=== PATIENT | female | born 1990 | race Hispanic/Latino ===

== ENCOUNTER 2020-02-26 14:41 | Emergency (ER) | payer OTHER, SELFPAY ==
[2020-02-26 15:20] VITALS: BP 136/87; PULSE 106; RESP 18; TEMP 37.6; O2SAT 97
--- NOTE | 2020-02-26 15:31 | ED.WOUNDLAC ---
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 She reports she is not up-to-date on her tetanus Related Data Home Medications Medication Instructions Recorded Confirmed meloxicam 15 mg tablet 15 mg PO DAILY 10/03/19 montelukast 10 mg tablet 10 mg PO DAILY 10/03/19 Allergies Allergy/AdvReac Type Severity Reaction Status Date / Time No Known Allergies Allergy Verified 10/10/19 15:05 Review of Systems Review of Systems: Narrative: CONSTITUTIONAL: Denies malaise, chills, sweats, or fever. CARDIOVASCULAR: Denies chest pain, palpitations RESPIRATORY: Denies dyspnea. SKIN: Reports laceration to the dorsal aspect of second digit of the left hand near the PA IP joint MUSCULOSKELETAL: Denies decreased range of motion, decrease sensitivity NEUROLOGIC: Denies numbness, weakness All systems reviewed & are unremarkable except as noted in HPI and below PMFSH Past Medical History Medical History (Updated 02/26/20 @ 15:56 by Anna Gaming NP) ADD (attention deficit disorder) Anxiety Asthma Kidney stones Social History Social History Smoking status: Never smoker Second hand tobacco smoke exposure: No Alcohol intake: current Comments At time of signature, agree with nursing past medical, surgical, social and family history. There is no relevant family history pertinent to the presenting complaint Exam Narrative: Exam Narrative: GENERAL: Well-appearing, well-nourished, and in no acute distress. HEAD: Normocephalic, atraumatic. EYES: PERRLA, conjunctivae clear NECK: Supple. CHEST: Speaks in full sentences. No respiratory distress. HEART: Regular rate and rhythm. Normal and equal peripheral pulses. EXTREMITIES: Left hand and digits of hand have normal strength and sensation. 5/5 strength with digit flexion, extension. Range of motion normal. No clubbing, cyanosis, or edema noted. No tenderness. Normal digital cascade with flexion of fingers, median, ulnar and radial nerve intact. Normal sensation of each side of finger. Can perform 'okay' sign, 'cross over finger test of index and middle fingers' and 'thumbs up' sign. No scissoring. Normal thumb opposition. Good capillary refill and radial pulse. Distal capillary refill ?3 seconds. SKIN: Warm, dry, no rash. 0.5 cm superficial laceration located next to the PIP joint on the dorsal aspect of the left hand. Well approximated, no surrounding erythema, edema, induration. NEURO: Alert and oriented x3. PSYCH: Normal mood and affect Course Course Emergency Course: Patient is aware of diagnosis, understands and agrees to treatment plan. Anticipatory guidance given. Patient agrees to follow-up as directed and is aware of reasons to seek care at the emergency department. Portions of this record may have been created with voice recognition software Vital Signs Vital signs: Vital Signs Temperature 99.7 F H 02/26/20 15:20 Pulse Rate 106 H 02/26/20 15:20 Respiratory Rate 18 02/26/20 15:20 Blood Pressure 136/87 02/26/20 15:20 Pulse Oximetry 97 02/26/20 15:20 Temperature 99.7 F H 02/26/20 15:20 Pulse Rate 106 H 02/26/20 15:20 Respiratory Rate 18 02/26/20 15:20 Blood Pressure 136/87 02/26/20 15:20 Pulse Oximetry 97 02/26/20 15:20 Reviewed. MDM - Wound/Laceration MDM Narrative Medical decision making narrative: Wound explored for foreign body and copious irrigation provided with no evidence of FB. Discussed the potential of retained foreign body with the patient and signs/symptoms that should prompt the patient to immediately go to
[2020-02-26] MEDS: TETANUS,DIPHTHERIA,AC PERTUSSIS ADULT 0.5 ML (ADACEL) IM (15:58)
== END 2020-02-26 16:18 | disposition home or self-care (01) ==
PROVIDERS: Emergency Provider Nurse Practitioner
DX: S61.211A Laceration without foreign body of left index finger without damage to nail, initial encounter (principal); F98.8 Other specified behavioral and emotional disorders with onset usually occurring in childhood and adolescence; F41.9 Anxiety disorder, unspecified; J45.909 Unspecified asthma, uncomplicated; Z87.442 Personal history of urinary calculi; Z23 Encounter for immunization; W27.0XXA Contact with workbench tool, initial encounter
CPT/HCPCS: 12001; 90471; 90715; 99212; G0463

== ENCOUNTER 2020-05-13 11:51 | Outpatient (CLI) | payer OTHER, SELFPAY ==
--- NOTE | ~2020-05-13 | CT_ITS ---
EXAMINATION: CT abdomen pelvis wo con DATE: 05/13/2020 12:20 INDICATION: Hematuria TECHNIQUE: Computed tomography (CT) of the abdomen and pelvis was performed without intravenous contr ast. Automated exposure control and iterative reconstruction technique were employed. Exam dose: 175 .20 mGy-cm total exam DLP. COMPARISON: None. FINDINGS: There is an approximately 6 mm distal right ureteral calculus with proximal mild to moderat e right hydroureteronephrosis. No hepatic, splenic, pancreatic, adrenal or renal space occupying mass lesion is evident on this limi uri noncontrast examination. No bile duct or pancreatic duct dilatation. The gallbladder is present. Normal caliber of the abdominal aorta. No intraperitoneal or retroperitoneal or pelvic mass lesion o r lymphadenopathy. No ascites. The uterus and adnexal areas and urinary bladder are unremarkable. Normal appendix. Mild colonic diverticulosis; no evidence of diverticulitis. No bowel obstruction o r free air. Included skeletal structures are unremarkable. IMPRESSION: 6 mm distal right ureteral calculus with proximal mild to moderate right hydroureteronep hrosis Reviewed, dictated and finalized at [facility]. Reviewed, dictated and finalized at location B. IMPRESSION: 6 mm distal right ureteral calculus with proximal mild to moderate right hydroureteronephrosis
--- NOTE | ~2020-05-13 | XR_ITS ---
XR abdomen/kub 1V DATE: 05/13/2020 12:11 INDICATION: Hematuria TECHNIQUE: AP projection, 2 views COMPARISON: 08/20/2019 KUB FINDINGS: There is an approximately 4 mm distal right ureteral calcified calculus. No evidence of bowel obstruction. The psoas shadows are intact. No visceromegaly. Included skeletal structures are unremarkable. IMPRESSION: 4 mm distal right ureteral calcified calculus Reviewed, dictated and finalized at [facility]. Reviewed, dictated and finalized at location B.
== END 2020-05-13 11:52 | disposition home or self-care (01) ==
PROVIDERS: PCP Family Medicine; Visit Provider Family Medicine
DX: R31.9 Hematuria, unspecified (principal); N20.0 Calculus of kidney; N13.30 Unspecified hydronephrosis; N20.1 Calculus of ureter
CPT/HCPCS: 74018; 74176

== ENCOUNTER 2020-05-28 07:30 | Outpatient (CLI) | payer OTHER, SELFPAY ==
--- NOTE | ~2020-05-28 | XR_ITS ---
XR abdomen/kub 1V DATE: 05/28/2020 07:51 INDICATION: Right ureteral stone TECHNIQUE: AP projection COMPARISON: 05/13/[address] abdomen pelvis 05/13/2020 KUB FINDINGS: The 4 mm calcified calculus of the distal right ureter is unchanged in position compared to 05/13/2020. There is no evidence of bowel obstruction. The psoas shadows are intact. No visceromegaly is evident. IMPRESSION: Unchanged position of 4 mm calcified distal right ureteral calculus since 05/13/2020 Reviewed, dictated and finalized at [facility]. Reviewed, dictated and finalized at location A.
== END 2020-05-28 07:31 ==
PROVIDERS: Visit Provider Urology
DX: N20.1 Calculus of ureter (principal)
CPT/HCPCS: 74018

== ENCOUNTER 2020-06-15 19:17 | Observation (INO) | payer OTHER, SELFPAY ==
--- NOTE | ~2020-06-15 | CT_ITS ---
EXAMINATION: CT abdomen pelvis wo con DATE: 06/15/2020 21:07 INDICATION: Right flank pain. History of stones. TECHNIQUE: Computed tomography (CT) of the abdomen and pelvis was performed without intravenous contr ast. The dose-length product was 365.96 mGy-cm. Automated exposure control and iterative reconstructi on technique were employed. COMPARISON: CT dated 05/13/2020 FINDINGS: There is a 6 mm right UVJ stone with moderate right hydroureteronephrosis. There is periure teral and perinephric edema, consistent with obstruction. Lung bases unremarkable. Heart size normal. No pleural or pericardial effusion. Liver, spleen, pancreas, adrenal glands and left kidney are unremarkable. Nonobstructive bowel gas pa ttern. The Rankin catheter appears to be in the vagina, although the bladder is not well-distended. Co rrelate for urine return. IMPRESSION: 1. 6 mm right UVJ stone with moderate right hydronephrosis. There is associated periureteral and tera nephric edema. 2: Rankin catheter may be present in the vagina rather than the bladder. Correlate clinically for urin e return. Reviewed, dictated and finalized at location A. IMPRESSION: 1. 6 mm right UVJ stone with moderate right hydronephrosis. There is associated periureteral and perinephric edema. 2: Rankin catheter may be present in the vagina rather than the bladder. Correla te clinically for urine return.
--- NOTE | ~2020-06-15 | XR_ITS ---
EXAMINATION: XR retrograde pyelo w/stent RT DATE: 06/16/2020 14:01 INDICATION: Right ureteral stone. TECHNIQUE: 6 intraoperative fluoroscopic views of the abdomen and pelvis were obtained. I was not pre sent. Fluoroscopy exposure time was 23 seconds. COMPARISON: CT abdomen and pelvis 06/15/2020 FINDINGS: The international tax manager images demonstrate a 6 mm stone at the right ureterovesicular junction. The right -sided retrograde pyelogram is unremarkable. The final images demonstrate a right internal ureteral s tent in expected position. IMPRESSION: 1. 6 mm stone at the right ureterovesicular junction. 2. Right internal ureteral stent in expected position. Reviewed, dictated and finalized at location B.
[2020-06-15 19:19] VITALS: BP 145/99; PULSE 145; RESP 18; TEMP 36.6; O2SAT 100
[2020-06-15 19:29] VITALS: BP 140/100; PULSE 119; RESP 22; TEMP 36.9; O2SAT 99
[2020-06-15 19:39] LABS: Basophils Absolute Auto 0.1 K/mm3 (0.0-0.1); Basophils Percent Auto 0.7 % (0.2-1.2); Eosinophils Absolute Auto 0.1 K/mm3 (0-0.3); Eosinophils Percent Auto 0.7 % (0-4.4); Hematocrit 39.8 % (37.0-47.0); Hemoglobin 13.6 g/dL (12.0-15.0); Immature Granulocyte Absolute 0.06 K/mm3 (0.00-0.031); Immature Granulocyte Percent A 0.4 % (0-0.5); Lymphocytes Absolute Auto 4.66 K/mm3 (0.9-3.2); Lymphocytes Percent Auto 28.4 % (18.3-44.2); Mean Corpuscular HGB Conc 34.2 g/dl (32-36); Mean Corpuscular Hemoglobin 31.3 pg (26-34); Mean Corpuscular Volume 91.5 fl (80-100); Monocytes Absolute Auto 1.3 K/mm3 (0.1-0.6); Monocytes Percent Auto 7.8 % (2.6-8.5); Neutrophils Absolute Auto 10.2 K/mm3 (1.3-6.7); Platelet Count Result 401 k/mm3 (150-375); Red Blood Count 4.35 M/mm3 (4.2-5.4); Red Cell Distribution Width 12.7 % (11.5-14.5); White Blood Count 16.4 K/mm3 (4.5-10.0)
[2020-06-15 19:49] LABS: Anion Gap 9 mmol/L (8-16); Blood Urea Nitrogen 17 mg/dL (7-17); Calcium 9.2 mg/dL (8.4-10.2); Carbon Dioxide 27 mmol/L (22-30); Chloride 103 mmol/L (98-107); Estimated CRCL calculation 73 ml/min; Estimated Glomerular Filt Rate > 60; Glucose 107 mg/dL (65-105); Potassium 3.3 mmol/L (3.4-5.0); Sodium 139 mmol/L (137-145)
--- NOTE | 2020-06-15 19:52 | PC.NURSE ---
Astorga Catheter placed by equip tech, there is no urine output noted in the astorga at this time. Will re-scan bladder.
--- NOTE | 2020-06-15 20:12 | PC.NURSE ---
Lab aware of add on for Beta HCG
[2020-06-15 20:40] LABS: Beta HCG Quantitative < 2.39 mIU/ML
--- NOTE | 2020-06-15 20:44 | ED.FEMALEGU ---
HPI - Female Genitourinary General Chief complaint: Urogenital-Female <Paulina Velazco PA-C - Last Filed: 06/15/20 22:37> Stated complaint: kidney stone, not urinated in 12 hours <Paulina Velazco PA-C - Last Filed: 06/15/20 22:37> Time Seen by Provider: 06/15/20 19:34 <LAZ Arroyo Last Filed: 06/15/20 22:37> Source: patient and family <LAZ Arroyo Last Filed: 06/15/20 22:37> Mode of arrival: ambulatory <LAZ Arroyo Last Filed: 06/15/20 22:37> Limitations: no limitations <Paulina Velazco PA-C - Last Filed: 06/15/20 22:37> History of Present Illness HPI Narrative: Patient presents with chief complaint of right groin pain and leg times been heard to urinate with only trickles. Patient states that she was told that she had a 6 mm stone in her UVJ and she saw her urologist Dr. Berman and they schedule a lithotripsy on 06-23-20 in an attempt to allow the patient to pass a stone on her own. Patient states today she began having pain in the area and the persistent urge to urinate but when she goes to the bathroom she only has small trickles. Patient denies tenderness and and fullness over her bladder. Patient reports nausea but denies vomiting. <LAZ Arroyo Last Filed: 06/15/20 22:37> Related Data Home medications: Home Medications Medication Instructions Recorded Confirmed montelukast 10 mg tablet 10 mg PO DAILY 10/03/19 06/14/20 hydrocodone-acetaminophen 1 tablet PO Q8H PRN 06/14/20 06/14/20 ipratropium bromide 2 spray NASAL TID PRN 06/14/20 06/14/20 tamsulosin [Flomax] 0.4 mg PO DAILY 06/15/20 <LAZ Arroyo Last Filed: 06/15/20 22:37> Allergies/Adverse reactions: Allergies Allergy/AdvReac Type Severity Reaction Status Date / Time No Known Allergies Allergy Verified 06/15/20 19:18 <Paulina Velazco PA-C - Last Filed: 06/15/20 22:37> Review of Systems Review of Systems: Narrative: CONSTITUTIONAL: Denies fever, chills, or sweats. EYES: Denies visual changes, redness, or discharge. ENT: Denies rhinorrhea, congestion, sore throat, or otalgia. CARDIOVASCULAR: Denies chest pain, palpitations, or edema. RESPIRATORY: Denies cough or dyspnea. GASTROINTESTINAL: Denies abdominal pain, nausea, vomiting, or diarrhea. GENITOURINARY: Reports right groin pain dysuria and urge SKIN: Denies rash or itching. MUSCULOSKELETAL: Denies back pain, joint pain, or myalgia. NEUROLOGIC: Denies headache, numbness, dizziness, or weakness. PSYCHIATRIC: Denies anxiety or depression. <Paulina Velazco PA-C - Last Filed: 06/15/20 22:37> [facility] Social History Social History: Social History Smoking packs per day: 0.5 Smoking cigarettes per day: 10.0 Years smoked: 11 Smoking pack-years: 5.50 Smoking status: Current some day smoker Tobacco type: cigarettes Second hand tobacco smoke exposure: No Alcohol intake: current Substance use: current Substance use type: marijuana Last use: 06/14/20 Gender identity (if verbalized by the patient): Female Spiritual care concerns: No <Paulina Velazco PA-C - Last Filed: 06/15/20 22:37> Exam Narrative: Exam Narrative: GENERAL: Well-appearing, well-nourished, and appears mildly uncomfortable. HEAD: Normocephalic, atraumatic. EYES: PERRLA and EOMI. ENT: Nares clear, no rhinorrhea or epistaxis. Mucous membranes moist. Oropharynx without tonsillar hypertrophy exudate or other lesions. Bilateral TMs pearly trevino nonbulging NECK: Supple. No adenopathy or masses. CHEST: Clear to auscultation. No respiratory distress. No wheezes rales or rhonchi HEART: Regular rate and rhythm. ABDOMEN: Soft, mild tenderness with deep palpation of right groin, nondistended, normal active bowel sounds. EXTREMITIES: Normal range of motion. No edema. SKIN: Warm, dry, no rash. NEURO: No focal deficits. Alert and oriented x3. PSYCH: Normal mo
[2020-06-15] MEDS: MORPHINE SULFATE 2 MG/ML INJ IV PUSH (20:56)
--- NOTE | 2020-06-15 20:56 | PC.NURSE ---
Patient to CT at this time.
--- NOTE | 2020-06-15 21:39 | PC.NURSE ---
Initial astorga placement checked by Fanta ESCTOO, and Franky ESCOTO. Astorga appeared to be in the correct positions. EDPA aware that no output noted and bladder scan revealed small amount of urine in bladder. BHCG was ordered to facilitate patient movement to CT. CT reports that astorga appears misplaced. New astorga was inserted by TIGIST Jewell and less than 100ml output was reported at that time.
[2020-06-15 21:42] LABS: Add Urine Microscopic? YES; Appearance Urine Cloudy (Clear); Bacteria Urine Trace /hpf; Bilirubin Urine Negative (Negative); Blood Urine 3+ (Negative); Color Urine Yellow (Yellow); Glucose Urine UA Negative (Negative); Ketones Urine Negative (Negative); Leukocyte Esterase Ur 3+ LEU/UL (Negative); Mucus Urine Heavy /lpf; Nitrate Urine Negative (Negative); Protein Urine 1+ mg/dL (Negative); RBC Urine >75 /hpf (0-2); Specific Grav Ur 1.027 (1.001-1.035); Squamous Epithelial Cell Urine Many /hpf (Few); Urobilinogen Urine Negative mg/dL (<2.0); WBC Urine 16-20 /hpf
[2020-06-15] MEDS: MORPHINE SULFATE 2 MG/ML INJ 1 MG IV PUSH (21:51)
[2020-06-15] MEDS: ONDANSETRON INJ 4 MG/2 ML VIAL IV PUSH (21:52)
[2020-06-15 22:15] VITALS: BP 118/66; PULSE 82; RESP 24; TEMP 36; O2SAT 99
--- NOTE | 2020-06-15 22:39 | PC.NURSE ---
IV Tylenol was not given because medication was discontinued.
--- NOTE | 2020-06-15 23:08 | PC.NURSE ---
Assumed care of pt at this time. Report from TIGIST Wilkins
[2020-06-15] MEDS: POTASSIUM CHLORIDE 20 MEQ TABLET 40 MEQ PO (23:20)
[2020-06-15] MEDS: SODIUM CHLORIDE 0.9% IV 1,000 ML 150 ML IV CONT (23:21)
[2020-06-15 23:30] VITALS: BP 120/77; PULSE 79; RESP 12; O2SAT 97
[2020-06-15 23:50] VITALS: BP 130/83; PULSE 99; RESP 20; TEMP 36.4; O2SAT 97; BMI 27.8
--- NOTE | 2020-06-15 23:55 | ADMGEN ---
This patient, Carolee Holloway, was admitted to [facility] Surg Room 303-01. Patient/family oriented to hospital policies and general routines including ID bracelet, bed and alarms, visiting hours, pain management, procedures, bathroom and other care routines, personal items, smoking policy, room service/diet, and visiting hours. Valuables list has been completed. Information on how to activate the Rapid Response Team has been discussed. Patient/Family are encouraged to report perceived risks to care and to ask questions if they do not understand what they are told or what they should do.
[2020-06-16] VITALS (8 sets, daily range): BP systolic 105–121; BP diastolic 50–79; PULSE 62–93; RESP 12–24; TEMP 36.3–36.7; O2SAT 99–100
[2020-06-16] MEDS: MORPHINE SULFATE 4 MG/ML INJ (01:39)
[2020-06-16 06:32] LABS: Basophils Absolute Auto 0.1 K/mm3 (0.0-0.1); Basophils Percent Auto 1.1 % (0.2-1.2); Eosinophils Absolute Auto 0.1 K/mm3 (0-0.3); Eosinophils Percent Auto 0.6 % (0-4.4); Hematocrit 35.7 % (37.0-47.0); Hemoglobin 11.9 g/dL (12.0-15.0); Immature Granulocyte Absolute 0.03 K/mm3 (0.00-0.031); Immature Granulocyte Percent A 0.3 % (0-0.5); Lymphocytes Absolute Auto 3.32 K/mm3 (0.9-3.2); Lymphocytes Percent Auto 29.9 % (18.3-44.2); Mean Corpuscular HGB Conc 33.3 g/dl (32-36); Mean Corpuscular Hemoglobin 31.3 pg (26-34); Mean Corpuscular Volume 93.9 fl (80-100); Mean Platelet Volume 10.2 fl (7.4-10.4); Monocytes Absolute Auto 0.9 K/mm3 (0.1-0.6); Monocytes Percent Auto 7.7 % (2.6-8.5); Neutrophils Absolute Auto 6.7 K/mm3 (1.3-6.7); Neutrophils Percent Auto 60.4 % (45.5-73.1); Platelet Count Result 337 k/mm3 (150-375); Red Cell Distribution Width 12.9 % (11.5-14.5); White Blood Count 11.1 K/mm3 (4.5-10.0)
[2020-06-16 06:46] LABS: Anion Gap 3 mmol/L (8-16); Blood Urea Nitrogen 13 mg/dL (7-17); Calcium 8.4 mg/dL (8.4-10.2); Carbon Dioxide 24 mmol/L (22-30); Chloride 110 mmol/L (98-107); Estimated CRCL calculation 107 ml/min; Estimated Glomerular Filt Rate > 60; Glucose 87 mg/dL (65-105); Potassium 4.1 mmol/L (3.4-5.0); Sodium 137 mmol/L (137-145)
--- NOTE | 2020-06-16 08:19 | WPDURCON ---
Assessment and Plan Assessment and plan (1) Right ureteral stone: Code(s): N20.1 - Calculus of ureter Status: Acute Assessment and Plan: - plan cysto, right ureteroscopy, laser lithotripsy, stone extraction, retrograde pyelogram, possible stent placement - risks, benefits and alternatives discussed. pt agrees to proceed. Urology Consult Note HPI Date Seen: 06/16/20 Requesting Physician: Mignon Ortiz PA-C Primary Care Provider: UNKNOWN,DOCTOR Consult Narrative Narrative: Carolee Holloway is a 30 year old female with right ureteral stone. pt has attempted to pass on her own, however presented to ER with pelvic pain Review of Systems Review of Systems: All systems reviewed & are unremarkable except as noted in HPI and below PMFSH Family History Family History (Updated 06/15/20 @ 23:56 by Anny Mendez RN) Mother Hypertension Other Barretts esophagus Social History Social History Smoking packs per day: 0.5 Smoking cigarettes per day: 10.0 Years smoked: 11 Smoking pack-years: 5.50 Smoking status: Current every day smoker Tobacco type: cigarettes Second hand tobacco smoke exposure: No Alcohol intake: current Drinks per week: 1 Substance use: current Substance use type: marijuana Last use: 06/14/20 Gender identity (if verbalized by the patient): Female Spiritual care concerns: No Meds Home Medications and Allergies Home Medications Medication Instructions Recorded Confirmed Type montelukast 10 mg tablet 10 mg PO HS 10/03/19 06/15/20 History alprazolam 0.25 mg tablet 0.25 mg PO TID PRN #30 tablet 03/23/20 06/15/20 Rx ipratropium bromide 2 spray NASAL TID PRN 06/14/20 06/15/20 History tamsulosin [Flomax] 0.4 mg PO HS 06/15/20 06/15/20 History Allergies Allergy/AdvReac Type Severity Reaction Status Date / Time No Known Allergies Allergy Verified 06/15/20 19:18 Vital Signs Vital Signs - 24 hr 06/15/20 19:19 06/15/20 19:29 06/15/20 22:15 Temperature 36.6 C 36.9 C 36.0 C L Pulse Rate 145 H 119 H 82 Respiratory Rate 18 22 H 24 H Blood Pressure 145/99 H 140/100 H 118/66 Pulse Oximetry 100 99 99 06/15/20 23:30 06/15/20 23:50 06/16/20 06:00 Temperature 36.4 C 36.3 C L Pulse Rate 79 99 70 Respiratory Rate 12 20 18 Blood Pressure 120/77 130/83 111/67 Pulse Oximetry 97 97 100 Exam Const: General: no acute distress Eyes: General: appearance normal, both eyes and all related structures Resp: Effort & Inspection: normal respiratory effort Urinary Catheter: Urinary Catheter: patent and draining Results Labs CBC & Chem 7: 06/16/20 06:23 06/16/20 06:23 Labs: Short CBC 06/15/20 06/16/20 Range/Units 19:33 06:23 WBC 16.4 H 11.1 H (4.5-10.0) K/mm3 Hgb 13.6 11.9 L (12.0-15.0) g/dL Hct 39.8 35.7 L (37.0-47.0) % Plt Count 401 H 337 (150-375) k/mm3 BMP 06/15/20 06/16/20 19:33 06:23 Sodium 139 137 Potassium 3.3 L 4.1 Chloride 103 110 H Carbon Dioxide 27 24 BUN 17 13 Creatinine 0.90 0.60 L Glucose 107 H 87 Calcium 9.2 8.4 Urine 06/15/20 Range/Units 21:32 Urine Color Yellow (Yellow) Urine Appearance Cloudy H (Clear) Urine pH 6.0 (5.0-9.0) Ur Specific [place] 1.027 (1.001-1.035) Urine Protein 1+ H (Negative) mg/dL Urine Glucose (UA) Negative (Negative) mg/dL
--- NOTE | 2020-06-16 08:21 | PM.IMHP ---
H&P: HPI History of Present Illness Date/Time: 06/16/20 05:15 Chief complaint: Urinary stone with obstruction Narrative: Carolee Holloway is a 30 year old female with a past medical history of kidney stones who presented to ER due to worsening right flank pain and inability to urinate. Patient was diagnosed with a right UVJ stone With moderate hydrouronephrosis 05/13/2020 after she was having right side of flank pain and hematuria. She was referred to urology and was planning to have a lithotripsy on 06/23/2020. However she began having dysuria, increased urinary urgency with only dribbling of urine. She was unable to completely empty her bladder for approximately 12 hours before coming to the ER. She had also noticed worsening of her flank pain with pain now radiating into her right groin. Her pain was becoming severe in intensity despite taking her home Flomax and [place]. she denied had a being any nausea or vomiting. She reports her pain was a 10/10 in intensity and is worsen currently is down to a 4/10 intensity and is more manageable. she has had multiple right-sided kidney stones in the past. She has never had to have a kidney stone extracted. Review of Systems Review of Systems: Narrative: 12 systems were reviewed with pertinent positives and negatives per HPI. Except as documented in the HPI, all other systems were reviewed and are negative. [facility] Past Medical History Medical History (Updated 06/16/20 @ 08:27 by Candace Hwang DO) ADD (attention deficit disorder) Anxiety Asthma Kidney stones Surgical History Surgical History (Updated 06/16/20 @ 08:27 by Candace Hwang DO) No pertinent past surgical history Family History Family History Mother Hypertension Kidney stones Father Healthy male adult Social History Social History (Updated 06/16/20 @ 08:31 by Candace Hwang DO) Social History: The patient lives with her boyfriend of 6 years. She does not have any children. 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 She has been smoking since she was 17. She smokes half a pack of cigarettes per day. She rarely drinks alcohol and only in moderation. She smokes marijuana daily to help her sleep. Primary care physician: Dr. Jana Noland Smoking packs per day: 0.5 Smoking cigarettes per day: 10.0 Years smoked: 11 Smoking pack-years: 5.50 Smoking status: Current every day smoker Tobacco type: cigarettes Second hand tobacco smoke exposure: No Alcohol intake: current Drinks per week: 1 Substance use: current Substance use type: marijuana Last use: 06/14/20 Gender identity (if verbalized by the patient): Female Spiritual care concerns: No Meds Home Medications and Allergies Home Medications Medication Instructions Recorded Confirmed Type montelukast 10 mg tablet 10 mg PO HS 10/03/19 06/15/20 History alprazolam 0.25 mg tablet 0.25 mg PO TID PRN #30 tablet 03/23/20 06/15/20 Rx ipratropium bromide 2 spray NASAL TID PRN 06/14/20 06/15/20 History tamsulosin [Flomax] 0.4 mg PO HS 06/15/20 06/15/20 History Allergies Allergy/AdvReac Type Severity Reaction Status Date / Time No Known Allergies Allergy Verified 06/15/20 19:18 Vital Signs Vital Signs - 24 hr 06/15/20 19:19 06/15/20 19:29 06/15/20 22:15 Temperature 97.9 F 98.5 F 96.8 F L Pulse Rate 145 H 119 H 82 Respiratory Rate 18 22 H 24 H Blood Pressure 145/99 H 140/100 H 118/66 Pulse Oximetry 100 99 99 06/15/20 23:30 06/15/20 23:50 06/16/20 06:00 Temperature 97.6 F 97.3 F L Pulse Rate 79 99 70 Respiratory Rate 12 20 18 Blood Pressure 120/77 130/83 111/67 Pulse Oximetry 97 97 100 Exam Narrative: Exam Narrative: PHYSICAL EXAM: WEIGHT 69.1 kilos BMI 27.9 General: no acute distress, well-developed well-nourished HEENT: mucous membranes are moist, no oral pharyngeal erythema, pupils are equal and reactive, no scleral ic
[2020-06-16] MEDS: LACTATED RINGERS 1,000 ML 30 ML IV CONT ×3 (09:03→14:05)
--- NOTE | 2020-06-16 12:36 | WPDANESEPPF ---
Anes - Initial Pre Proc Eval Procedure: Operation Date: 06/16/20 13:30 Proposed Procedures p CYSTOSCOPY,RIGHT URETEROSCOPY,RIGHT RETROGRADE PYELOGRAM,POSSIBLE HOLMIUM LASER,POSSIBLE STENT PLACEMENT - Adelaida Berman MD Date/Time: 06/16/20 12:36 Surgeon: Mignon Ortiz PA-C Pre Op Diagnosis: Urinary stone with obstruction Patient Data Age: 30 Gender: F Height: 5 ft 2 in Weight: 69.1 kg Last Vital Signs Temp 36.3 C L 06/16/20 06:00 Pulse 70 06/16/20 06:00 Resp 18 06/16/20 06:00 BP 111/67 06/16/20 06:00 Pulse Ox 100 06/16/20 06:00 Allergies Allergy/AdvReac Type Severity Reaction Status Date / Time No Known Allergies Allergy Verified 06/15/20 19:18 Home Medications Medication Instructions Recorded Confirmed Type montelukast 10 mg tablet 10 mg PO HS 10/03/19 06/15/20 History alprazolam 0.25 mg tablet 0.25 mg PO TID PRN #30 tablet 03/23/20 06/15/20 Rx ipratropium bromide 2 spray NASAL TID PRN 06/14/20 06/15/20 History tamsulosin [Flomax] 0.4 mg PO HS 06/15/20 06/15/20 History Laboratory Tests 06/15/20 06/15/20 06/15/20 19:33 19:33 19:33 WBC 16.4 K/mm3 H K/mm3 (4.5-10.0) RBC 4.35 M/mm3 M/mm3 (4.2-5.4) Hgb 13.6 g/dL g/dL (12.0-15.0) Hct 39.8 % % (37.0-47.0) MCV 91.5 fl fl (80-100) MCH 31.3 pg pg (26-34) MCHC 34.2 g/dl g/dl (32-36) RDW 12.7 % % (11.5-14.5) Plt Count 401 k/mm3 H k/mm3 (150-375) MPV 10.0 fl fl (7.4-10.4) Immature Gran % (Auto) 0.4 % % (0-0.5) Neut % (Auto) 62.0 % % (45.5-73.1) Lymph % (Auto) 28.4 % % (18.3-44.2) [place] % (Auto) 7.8 % % (2.6-8.5) Eos % (Auto) 0.7 % % (0-4.4) Baso % (Auto) 0.7 % % (0.2-1.2) Lymph # (Auto) 4.66 K/mm3 H K/mm3 (0.9-3.2) [place] # (Auto) 1.3 K/mm3 H K/mm3 (0.1-0.6) Eos # (Auto) 0.1 K/mm3 K/mm3 (0-0.3) Baso # (Auto) 0.1 K/mm3 K/mm3 (0.0-0.1) Abs Immat Gran (auto) 0.06 K/mm3 H K/mm3 (0.00-0.031) Absolute Neuts (auto) 10.2 K/mm3 H K/mm3 (1.3-6.7) Absolute Nucleated RBC 0.0 K/mm3 K/mm3 (0.0-0.012) Nucleated RBC % 0.0 % % (0.0-0.2) Sodium 139 mmol/L mmol/L (137-145) Potassium 3.3 mmol/L L mmol/L (3.4-5.0) Chloride 103 mmol/L mmol/L (98-107) Carbon Dioxide 27 mmol/L mmol/L (22-30) Anion Gap 9 mmol/L mmol/L (8-16) BUN 17 mg/dL mg/dL (7-17) Creatinine 0.90 mg/dL mg/dL (0.7-1.0) Estim Creat Clear Calc 73 ml/min ml/min Estimated GFR > 60 (59 - ) Glucose 107 mg/dL H mg/dL (65-105) Calcium 9.2 mg/dL mg/dL (8.4-10.2) Beta HCG, Quant < 2.39 mIU/ML mIU/ML Urine Color Urine Appearance Urine pH Ur Specific [place] Urine Protein Urine Glucose (UA) Urine Ketones Ur Blood (Man) Urine Nitrate Urine Bilirubin Urine Urobilinogen Leukocyte Esterase Rfl Urine RBC Urine WBC Ur Squamous Epith Cells Urine Bacteria Hyaline Casts Urine Mucus 06/15/20 06/16/20 06/16/20 21:32 06:23 06:23 WBC 11.1 K/mm3 H K/mm3 (4.5-10.0) RBC 3.80 M/mm3 L M/mm3 (4.2-5.4) Hgb 11.9 g/dL L g/dL (12.0-15.0) Hct 35.7 % L % (37.0-47.0) MCV 93.9 fl fl (80-100) MCH 31.3 pg pg (26-34) MCHC 33.3 g/dl g/dl (32-36) RDW 12.9 % % (11.5-14.5) Plt Count 337 k/mm3 k/mm3 (150-375) MPV 10.2 fl fl (7.4-10.4) Immature Gran % (Auto) 0.3 % % (0-0.5) Neut % (Auto) 60.4 % % (45.5-73.1) Lymph % (Auto) 29.9 % % (18.3-44.2)
[2020-06-16] MEDS: LIDOCAINE HCL 2% GEL UROJET 10 ML PKG MUCOUS MEM (13:44)
--- NOTE | 2020-06-16 14:01 | PM.PROC ---
Procedure Note - Detailed Date of procedure: 06/16/20 Pre-op diagnosis: Urinary stone with obstruction Procedure performed: Cystoscopy, right ureteroscopy, right retrograde pyelogram, laser lithotripsy, stone extraction, stent insertion. Description of procedure: informed consent was obtained. The patient has taken to OR. She was given preoperative IV antibiotics. She was induced with anesthesia. She was placed in the dorsal lithotomy position. She was prepped and draped in the normal sterile fashion. a 22 F cystoscope was inserted through the urethra into the bladder. There were no mucosal abnormalities. We cannulated the right Ureteral orifice the ureteral scope was inserted into the distal ureter where we encountered the stone that was impacted. Using a laser fiber fragmented the stone into multiple fragments that were each removed with a Zero tip Nitinol basket. We inspected the distal half of the ureter there were no residual stones. A retrograde pyelogram revealed moderate right hydronephrosis, no extravasation. I placed a right ureteral stent with a curl in the upper pole and a curl in the bladder. the bladder was emptied and lidocaine jelly was inserted. The patient was taken recovery stable condition patient follow-up in 1 week for stent removal. Anesthesia: GLMA Surgeon: Adelaida Berman MD Estimated blood loss (mL): 0 Complications: No immediate complications Condition: stable Disposition: PACU
--- NOTE | 2020-06-16 15:42 | PC.NURSE ---
Returned from OR per stretcher. Report received from RN. Awake and alert, denies pain or discomfort, states feels like she needs to void, explained irritation in area, verbalizes understanding. Ambulated in room with steady gait.
--- NOTE | 2020-06-16 16:02 | PM.DS ---
DS: Admitting Diagnosis Admitting Diagnosis Admitting Diagnosis: Urinary stone with obstruction DS: Discharge Diagnosis Discharge Diagnosis (1) Urinary tract obstruction by kidney stone: Code(s): N20.0 - Calculus of kidney; N13.8 - Other obstructive and reflux uropathy Status: Acute Assessment and Plan: Discharge Summary: Ms. Holloway is a healthy 30 y.o. female with PMH significant for kidney stones who presented to the emergency department for the evaluation of worsening right flank pain, dysuria, urgency, and difficulty emptying bladder. CT abd/pelvis revealed 6mm right UVJ stone with moderate right hydronephrosis and associated periureteral and perinephric edema. She had a known hx of right UVJ stone and was planning to undergo lithotripsy 06/23/20. She as admitted and treated with IV ceftriaxone for presumed UTI as UA was highly suspicious for UTI. WBC count was elevated at 16.4 and improved to 11.1 with IV ceftriaxone. Urology was consulted and she underwent cystoscopy with right retrograde pyelogram, prabhakar lithotripsy, stone extraction, and stent insertion. She was cleared for discharge from a urology standpoint. She was instructed to return to urology in 1 week for stent removal. She was advised to continue cefdinir. I discussed that her urine culture was pending. She prefers to go home as her pain has resolved and urinary sx are much better. I discussed that I will call her if her urine culture results show bacteria that is not susceptible to cefdinir. (2) Right ureteral stone: Code(s): N20.1 - Calculus of ureter Status: Acute Assessment and Plan: As above. She is s/p cystoscopy with right retrograde pyelogram, prabhakar lithotripsy, stone extraction, and stent insertion by Dr. Berman. She reports significant symptomatic relief and is voiding regularly following astorga catheter removal. She was instructed to follow-up with Dr. Berman within 1 week for stent removal. (3) Bacteriuria with pyuria: Code(s): R82.71 - Bacteriuria; R82.81 - Pyuria Status: Acute Assessment and Plan: As above. UA was suspicious for UTI. She was treated with IV ceftriaxone and discharged on PO cefdinir. Urine culture is pending and I advised that I will call her if her antibiotics need to be changed. DS: Summary Time Spent with Patient Time attestation: Total time spent providing and/or coordinating discharge services: 35 minutes Exam Narrative: Exam Narrative: Vitals at presentation: Temp Pulse Resp BP Pulse Ox 97.9 F 145 H 18 145/99 H 100 06/15/20 19:19 06/15/20 19:19 06/15/20 19:19 06/15/20 19:19 06/15/20 19:19 Vitals at discharge: Temp Pulse Resp BP Pulse Ox 97.3 F L 72 18 112/65 100 06/16/20 16:46 06/16/20 16:46 06/16/20 16:46 06/16/20 16:46 06/16/20 16:46 General: Well-developed, well-nourished, pleasant and cooperative 30 y.o. female sitting up in bed in no acute distress. Non-toxic in appearance. HEENT: Normocephalic and atraumatic. Conjunctivae and lids normal. EOMI. Oral mucosa moist. Neck: Supple without lymphadenopathy or masses. Cardiac: Regular rate and rhythm. S1 and S2 normal Lungs: Lungs are clear to auscultation bilaterally. Abdomen: Normoactive bowel sounds. Abdomen is soft, non-distended, and non-tender. : No CVA tenderness. Extremities: No lower extremity edema or calf tenderness. Pedal pulses 2+. Neurological: Alert. Exam non-focal to casual conversation. Speech clear. Skin: Warm and dry. No lesions or eruptions. Psychiatric: Judgment and insight intact. Pleasant mood and appropriate affect. DS: Data Data Completed and Pending Pending studies at discharge: Pending
== END 2020-06-16 17:25 | disposition home or self-care (01) ==
LOC: ANHED 22:40 → ANH3MEDSUR 23:11
PROVIDERS: Physician Assistant; Urology; Admitting Provider Internal Medicine; Emergency Provider Emergency Medicine; Visit Provider Internal Medicine
PROC: (CPT 52352; principal; 2020-06-16 13:30)
DX: N13.2 Hydronephrosis with renal and ureteral calculous obstruction (principal); R82.71 Bacteriuria; R82.81 Pyuria; R10.2 Pelvic and perineal pain; F17.210 Nicotine dependence, cigarettes, uncomplicated; F12.90 Cannabis use, unspecified, uncomplicated
CPT/HCPCS: 52356; 36415; 51702; 74176; 74420; 80048; 81001; 82365; 84702; 85025; 87086; 88300; 96361; 96365; 96375; 96376; 99285; A9270; C1769; C2617; G0378; J0696; J1100; J2250; J2270; J2405; J2704; J3010; J7030; J7120; Q9966

== ENCOUNTER 2020-08-03 15:11 | Outpatient (CLI) | payer OTHER, SELFPAY ==
--- NOTE | ~2020-08-03 | XR_ITS ---
EXAMINATION: XR abdomen/kub 1V INDICATION: Right ureteral stone TECHNIQUE: Supine view of the abdomen is obtained. COMPARISON: 06/15/2020 and 05/28/2020 FINDINGS: There has been interval treatment or passage of the previously described right ureterovesic ular junction stone. No urolithiasis is identified. The bowel gas pattern is normal. The visualized o sseous structures are unremarkable. IMPRESSION: 1. Interval treatment or passage of the previously described right ureterovesicular junction stone. Reviewed, dictated and finalized at location A. IMPRESSION: 1. Interval treatment or passage of the previously described right ureterovesic ular junction stone.
== END 2020-08-03 15:12 | disposition home or self-care (01) ==
PROVIDERS: PCP Family Medicine; Visit Provider Urology
DX: N20.1 Calculus of ureter (principal)
CPT/HCPCS: 74018

== ENCOUNTER → 2021-11-10 09:35 | Outpatient (CLI) | payer SELFPAY ==
[2021-11-10 14:39] LABS: Influenza A QL RT-PCR Negative (Negative); Influenza B QL RT-PCR Negative (Negative)
[2021-11-10 21:12] LABS: SARS-CoV-2 RNA PCR Positive
== END ==
PROVIDERS: PCP Family Medicine; Visit Provider Family Medicine
DX: U07.1 COVID-19 (principal)
CPT/HCPCS: 87502; C9803; U0003; U0005

== ENCOUNTER 2023-11-01 16:54 | Outpatient (CLI) | payer SELFPAY ==
[2023-11-01 17:54] LABS: Influenza A QL RT-PCR Negative (Negative); Influenza B QL RT-PCR Negative (Negative); RSV RNA, RT-PCR Negative (Negative); SARS-CoV-2 RNA PCR Negative (Negative)
== END 2023-11-01 16:55 | disposition home or self-care (01) ==
LOC: ANHLAB 16:57
PROVIDERS: PCP Family Medicine; Visit Provider Family Medicine
DX: J06.9 Acute upper respiratory infection, unspecified (principal)
CPT/HCPCS: 87637